=== PATIENT | male | born 1955 | race Caucasian/White ===

== ENCOUNTER 2020-01-11 18:31 | Emergency (ER) | payer SELFPAY ==
[2020-01-11] MEDS ORDERED: Bacitracin 1 PK ONE (19:03)
--- NOTE | 2020-01-11 20:58 | CT ---
HEAD CT WITHOUT CONTRAST: 01/11/20 COMPARISON: None. HISTORY: Injury, trauma, pain. TECHNIQUE: Axial CT imaging at 5 mm intervals from vertex through the skull base without contrast. Coronal and s agittal reformatted imaging obtained. FINDINGS: There is mild posterior mucosal thickening of the left maxillary sinus. Imaged paranasal sinuses and mastoid air cells are otherwise unremarkable. There is a focal are of scalp swelling in the posterior left parietal region with subjacent foci of s oft tissue gas consistent with scalp laceration. No associated radiopaque foreign body or calvarial f racture is seen. No intracranial hemorrhage, midline shift or mass effect. There are a few foci of hypodensity within the white matter suggesting mild small vessel disease. IMPRESSION: Posterior left parietal scalp laceration with no associated radiopaque foreign body, fracture, or int racranial hemorrhage. POS: [facility]
== END 2020-01-11 19:50 | disposition home or self-care (01) ==
LOC: NAV ERS 18:31
DX: S00.03XA Contusion of scalp, initial encounter (principal); I10 Essential (primary) hypertension; Z79.82 Long term (current) use of aspirin; V94.0XXA Hitting object or bottom of body of water due to fall from watercraft, initial encounter
CPT/HCPCS: 70450